=== PATIENT | male | born 1995 ===

== ENCOUNTER 2018-06-14 09:45 | Emergency (ER) | payer SELFPAY ==
[2018-06-14 10:02] VITALS: BP 109/75
[2018-06-14] MEDS ORDERED: Tetracaine 0.5% OPTH.SOL 4 ML* 1 DROP BTL LEFT EYE ONE (10:05)
[2018-06-14] MEDS ORDERED: Fluorescein Sod TOPICAL 0.6* 0.6 MG TEST OPHTHALMIC ONE ×2 (10:05→10:07)
[2018-06-14] MEDS ORDERED: Tetracaine 0.5% OPTH.SOL 4 ML* 1 DROP BTL ONE (10:07)
--- NOTE | 2018-06-14 10:14 | UC ---
Eye Complaint HPI - HPI Summary HPI Summary: This is scribe Brenda Cortez documenting for attending Dr. Randal MD. The patient is a 22 year old M presenting to Urgent Care with a chief complaint of eye pain. 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 Last night around 1900, he was milking a cow who hit some dirt into his R eye, causing irritation and redness. Associated sx: mild photophobia. The pt is from [facility], and does not smoke or drink. I, Dr. Tee, personally performed the services described in this documentation as scribed in my presence and it is both accurate and complete. - History of Current Complaint Chief Complaint: UCEye Stated Complaint: R EYE COMPLAINT Time Seen by Provider: 06/14/18 10:04 Hx Obtained From: Patient, Silk Spreader - Friend interpreted for the Danish- speaking patient. Onset/Duration: Sudden Onset, Lasting Hours - since 1900 last night., Still Present Timing: Constant Severity Initially: Moderate Severity Currently: Moderate Pain Intensity: 6 Pain Scale Used: 0-10 Numeric Location of Injury: Conjunctiva Aggravating Factor(s): Blinking Alleviating Factor(s): Eye Drops - numbing Associated Signs And Symptoms: Positive: Photophobia - Allergies/Home Medications Allergies/Adverse Reactions: Allergies Allergy/AdvReac Type Severity Reaction Status Date / Time No Known Allergies Allergy Verified 06/14/18 10:02 PMH/Surg Hx/FS Hx/Imm Hx Previously Healthy: Yes Endocrine History: Diabetes - negative diabetes Respiratory History: COPD - negative COPD - Surgical History Surgical History: None - Family History Known Family History: Positive: Diabetes - mother and one of his brothers - Social History Occupation: Employed Full-time Lives: Dormitory/Roommates Alcohol Use: None Substance Use Type: None Smoking Status (MU): Never Smoked Tobacco Review of Systems Constitutional: Negative - fever Eyes: Eye Redness - and pain, Photophobia All Other Systems Reviewed And Are Negative: Yes Physical Exam - Summary Physical Exam Summary: Appearance: Well appearing, no pain distress Skin: warm, dry, reflects adequate perfusion Head/face: normal Eyes: mild R side injection of conjunctiva. No fluorescein uptake, no light sensitivity reflex, mid-range reactive R pupil. No scratch to the R cornea, no dirt or foreign body in R eye. ENT: normal Neck: supple, non-tender Respiratory: CTA, breath sounds present Cardiovascular: RRR, pulses symmetrical Abdomen: non-tender, soft Bowel Sounds: present Musculoskeletal: normal, strength/ROM intact Neuro: normal, sensory motor intact, A&Ox3 Triage Information Reviewed: Yes Vital Signs: Initial Vital Signs Temp 98 F 06/14/18 09:58 Pulse 52 06/14/18 09:58 Resp 16 06/14/18 09:58 BP 109/75 06/14/18 09:58 Pulse Ox 99 06/14/18 09:58 Vital Signs Reviewed: Yes Eye Complaint Course/Dx - Course Course Of Treatment: Pain subsided after numbing eye drops were given, and vision is normal. No fluorescein uptake, no foreign body identified with lid eversion. No pain with light reflex or evidence of iritis. Likely foreign body that was irrigated out. Topical antibiotics and follow up as needed with eye doctor. - Differential Dx/Diagnosis Differential Diagnosis/HQI/PQRI: Other - Foreign body, corneal abrasion, traumatic versus chemical conjunctivitis Provider Diagnoses: Traumatic conjunctivitis. Discharge - Sign-Out/Discharge Documenting (check all that apply): Patient Departure - Discharge Plan Condition: Improved Disposition: HOME Prescriptions: Erythromycin OPTH OINT* [Erythromycin 0.5% OPTH OINT*] 1 applic RIGHT EYE TID 3 Days #1 ophth.oint Patient Education Materials: Eye Foreign Body (ED), Conjunctivitis (ED) Print Language: YI Referrals: [facility] [Outside] No Primary Care Phys,NOPCP [Primary Care Provider] - Additional Instructions: Puede usar las gotas proporcionadas para el dolor: 1 gota cada 6 horas, segn sea necesario. El aashish estar entumecido, asegrese de no obtener nada ms en l. Regrese si tiene un dolor peor, problema de visin, nuevos sntomas u otras preocupaciones. Si el aashish empeora, consulte a un oftalmlogo. You can use the drops provided for pain -- 1 drop every 6 hours as needed. The eye will be numb, be sure to not get anything else in it. Return if worse pain, vision problem, new symptoms or other concerns. If eye gets worse, see an eye doctor. - Billing Disposition and Condition Condition: IMPROVED Disposition: Home
== END 2018-06-14 10:29 | disposition home or self-care (01) ==
LOC: UCEAST 09:45
DX: H10.89 Other conjunctivitis (principal); Z83.3 Family history of diabetes mellitus
CPT/HCPCS: 99202; A9270-GY; G0463